=== PATIENT | female | born 1990 | race Caucasian/White ===

== ENCOUNTER 2018-12-25 19:49 | Emergency (ER) | payer BC ==
[~2018-12-25] VITALS: Ht 172.7 cm; Wt 96.2 kg
[2018-12-25 20:05] VITALS: BP_SYST 146
--- NOTE | 2018-12-25 20:05 | NUR ---
.Patient triaged and placed in waiting room. VSS and patient appears in no acute distress at this time. Accompanied by daughter, awaiting available bed, and MD notified of need for MSE.called from waiting room, no answer. Not found in ED waiting room nor bathroom.
--- NOTE | 2018-12-25 20:40 | NUR ---
called from waiting room, no answer. Not found in ED waiting room nor bathroom.
--- NOTE | 2018-12-25 21:00 | NUR ---
Pt called from waiting room, no answer. Not found in ED waiting room nor bathroom.
--- NOTE | 2018-12-25 21:05 | NUR ---
Pt assumed to have left without being seen.
== END 2018-12-25 21:05 | disposition left against medical advice (07) ==
LOC: SED 19:49
DX: O26.892 Other specified pregnancy related conditions, second trimester (principal); M54.2 Cervicalgia; Z53.21 Procedure and treatment not carried out due to patient leaving prior to being seen by health care provider